=== PATIENT | male | born 1990 | race Caucasian/White ===

== ENCOUNTER 2019-01-18 08:10 | Day surgery (SDC) | payer MEDICAID ==
[~2019-01-18] VITALS: Ht 175.3 cm; Wt 77.1 kg
[2019-01-18 08:37] VITALS: BP 112/72
[2019-01-18 13:47] VITALS: BP 111/63
== END 2019-01-18 12:15 | disposition home or self-care (01) ==
LOC: GI 08:10 → OR 09:30 → GI 10:30
PROVIDERS: Internal Medicine Gastroenterology
PROC: 0DBN8ZZ Excision of Sigmoid Colon, Via Natural or Artificial Opening Endoscopic (ICD-10-PCS; principal; 2019-01-18 10:30)
PROC: 0DBE8ZX Excision of Large Intestine, Via Natural or Artificial Opening Endoscopic, Diagnostic (ICD-10-PCS; 2019-01-18 10:30)
DX: R19.7 Diarrhea, unspecified (principal); K63.5 Polyp of colon; Z68.27 Body mass index [BMI] 27.0-27.9, adult
CPT/HCPCS: 45378; J1200; J1610; J2250; J2310; J3010; J3490